=== PATIENT | female | born 1930 | race Caucasian/White ===

== ENCOUNTER 2018-09-21 16:48 | Observation (INO) | payer OTHER, MEDICARE ==
--- OUTSIDE RECORDS SUMMARY | 2018-09-21 16:50 | XMS REPORT ---
:1930 Author Organization eClinicalWorks Care Team Providers Name Role Phone Tu Morrow Provider Role Unavailable Allergies, Adverse Reactions, Alerts Substance Reaction Event Type Tetanus Info Not Available Drug Allergy Problems Problem Type Condition Code Onset Dates Condition Status Assessment Pain in joint of right wrist M25.531 Active Assessment Ganglion cyst of volar aspect of M67.431 Active right wrist Medications Medication Code Code Instructions Start End Status Dosage System Date Date Aleve [facility] 63005955560 220 MG Orally Jun 30, Active 1 tablet every 12 hrs 2018 with food or milk as needed Aspir-81 [facility] [address]-35 81 MG Orally Jun 30, Active 1 tablet Once a day 2017 losartan [facility] 55643042011 20 mg Jun 30, Active one tab 2018 daily Eye Vitamins [facility] 33697164133 - Orally Jun 30, Active as directed 2018 atorvastatin [facility] 38982062004 20mg Jun 30, Active 1 tablet by 2018 mouth at bedtime Results No Known Results Summary Purpose eClinicalWorks Submission
--- NOTE | 2018-09-21 17:32 | ER ---
Nurse's Notes [facility] Name: Beverley Stevens Age: 88 yrs Sex: Female : 1930 Arrival Date: 09/21/2018 Time: 16:51 Bed 7 Private MD: Marlo Odonnell V Diagnosis: Syncope and collapse;Essential (primary) hypertension;Superficial injury of head Presentation: 09/21 16:57 Presenting complaint: Patient states: Fell from a standing position approx 1 hour ago. ss Pt reports she the back of her bead and believes she may also have a UTI. Denies LOC. Transition of care: patient was not received from another setting of care. Onset of symptoms is unknown. Risk Assessment: Do you want to hurt yourself or someone else? Patient reports no desire to harm self or others. Initial Sepsis Screen: Does the patient meet any 2 criteria? No. Patient's initial sepsis screen is negative. Does the patient have a suspected source of infection? Yes: Dysuria/Frequency/Urgency/UTI. Care prior to arrival: None. 16:57 Method Of Arrival: Wheelchair 16:57 Acuity: EDMUND 2 ss Historical: - Allergies: 16:59 No Known Allergies; ss - PMHx: 16:59 Hypertension; High Cholesterol; ss - PSHx: 16:59 Hysterectomy; removal of skin cancer; Appendectomy; Tonsillectomy; stents to left leg; ss Knee surgery; foot surgery; - Immunization history:: Adult Immunizations up to date, Flu vaccine is not up to date. - Social history:: Smoking status: Patient/guardian denies using tobacco. - Ebola Screening: : Patient denies exposure to infectious person Patient denies travel to an Ebola-affected area in the 21 days before illness onset. - Family history:: not pertinent. Screenin:30 Abuse screen: Denies threats or abuse. Nutritional screening: No deficits noted. aa5 Tuberculosis screening: No symptoms or risk factors identified. Fall Risk Fall in past 12 months (25 points). IV access (20 points). Total Jones Fall Scale indicates High Risk Score (45 or more points). Fall prevention measures have been instituted. Side Rails Up X 2 Family Present and informed to notify staff if the need to leave the bedside. Assessment: 17:10 General: Appears comfortable, Behavior is calm, cooperative. Pain: Denies pain. Neuro: aa5 Level of Consciousness is awake, alert, obeys commands, Oriented to person, place, time, situation, Enologist are weak bilaterally Moves all extremities. Speech is normal, Facial symmetry appears normal, Pupils are PERRLA, Reports generalized weakness. Pt states "I feel like my head is not right, like I am drugged or something" . Cardiovascular: Reports Pt states "I think I blacked out and lost consciousness before I fell" Denies chest pain, Heart tones S1 S2 present Edema 1+ pitting edema to sangita lower extremities Rhythm is regular. Respiratory: Airway is patent Respiratory effort is even, unlabored, Respiratory pattern is regular, symmetrical, Breath sounds are clear bilaterally. GI: Abdomen is round non-distended, Bowel sounds present X 4 quads. Abd is soft and non tender X 4 quads. : Reports "I think I have a UTI because every time I go to the doctor I have one" Denies burning with urination. EENT: No signs and/or symptoms were reported regarding the EENT system. Derm: Skin is pink, warm \\T\\ dry. Swollen area noted to left pariental area with abrasion, approximately 2.5in in diameter, no active bleeding noted. Musculoskeletal: Range of motion: intact in all extremities. 17:42 Reassessment: Pt to CT via stretcher . aa5 18:06 Reassessment: Patient is alert, oriented x 3, equal unlabored respirations, skin aa5 warm/dry/pink. Pt back from CT scan . 18:30 Reassessment: Patient and/or family updated on plan of care and expected duration. Pain aa5 level reassessed. Patient is alert, oriented x 3, equal unlabored respirations, skin warm/dry/pink. Patient denies pain at this time. Pt sitting up in bed. Pt's family at bedside. . 19:30 General: Appears in no apparent distress. Behavior is calm, cooperative. Pain: Denies ea pain. Neuro: Level of Consciousness is awake, alert, obeys commands, Oriented to person, place, time, situation. Cardiovascular: Heart tones S1 S2 present Patient's skin is warm and dry. Respiratory: Airway is patent Respiratory effort is even, unlabored, Respiratory pattern is regular, symmetrical. GI: Abdomen is round non-distended, Bowel sounds present X 4 quads. Abd is soft and non tender X 4 quads. Derm: Skin is pink, warm \\T\\ dry. 20:04 Reassessment: Patient is alert, oriented x 3, equal unlabored respirations, skin ea warm/dry/pink. Patient denies pain at this time. Report give to Asha CHANG . Vital Signs: 16:59 BP 217 / 79; Pulse 79; Resp 18; Temp 97.7(TE); Pulse Ox 99% on R/A; Weight 55.34 kg ss (R); Height 5 ft. 0 in. (152.40 cm); Pain 0/10; 16:59 BP 214 / 69; Pulse 80; Resp 17; Pulse Ox 98% on R/A; ss 17:22 BP 243 / 99; Pulse 88; Resp 16 S; Pulse Ox 96% on R/A; aa5 18:06 BP 184 / 107; Pulse 76; Resp 16 S; Pulse Ox 97% on R/A; aa5 18:20 BP 196 / 82; Pulse 74; Resp 16 S; Pulse Ox 96% on R/A; aa5 18:34 BP 180 / 75; Pulse 71; Resp 16 S; Pulse Ox 96% on R/A; aa5 18:50 BP 174 / 76; Pulse 74; Resp 16 S; Pulse Ox 97% on R/A; aa5 19:31 BP 180 / 75; Pulse 78; Resp 17; Pulse Ox 98% on R/A; Pain 0/10; ea 20:06 BP 186 / 76; Pulse 72; Resp 18; Pulse Ox 99% on R/A; ea 16:59 Body Mass Index 23.83 (55.34 kg, 152.40 cm) ss 17:22 Dr. Ricketts notified of increased BP aa5 ED Course: 16:51 Patient arrived in ED. mr 16:51 Marlo Odonnell MD is Private Physician. mr 16:58 Triage completed. ss 17:02 Sonu Ricketts MD is Attending Physician. [facility] 17:05 Sally Waller, BERNARDO is Primary Nurse. aa5 17:10 Patient has correct armband on for positive identification. Placed in gown. Bed in low aa5 position. Call light in reach. Side rails up X2. case monitor on. Pulse ox on. NIBP on. 17:20 Initial lab(s) drawn, by me, sent to lab. Inserted saline lock: 20 gauge in left aa5 forearm, using aseptic technique. Blood collected. 17:31 Marlo Odonnell MD is Hospitalizing Provider. [facility] 17:32 Radiology exam delayed due to IV insertion attempt and/or patient not having vm2 appropriate IV at this time. 17:[address] 2 17:57 EKG done, by remote sensing technician. reviewed by Sonu Ricketts MD. dt2 18:34 No provider procedures requiring assistance completed. aa5 19:05 Report given to BERNARDO Peter and BERNARDO Yusuf. [facility] 19:32 Patient admitted, IV remains in place. ea Administered Medications: 17:40 Drug: cloNIDine 0.1 mg Route: PO; aa5 18:30 Follow up: Response: No adverse reaction aa5 17:40 Drug: Norvasc 10 mg Route: PO; aa5 18:30 Follow up: Response: No adverse reaction aa5 18:10 Drug: NS 0.9% 1000 ml Route: IV; Rate: 75 ml/hr; Site: left forearm; aa5 20:08 Follow up: Response: No adverse reaction; IV Status: Infusion continued upon admission ea 18:10 Drug: Lisinopril 5 mg Route: PO; aa5 18:50 Follow up: Response: No adverse reaction aa5 18:15 Drug: Rocephin - (cefTRIAXone) 1 grams {Note: administered IVP per pharmacy protocol at [facility] this time. .} Route: IVPB; Infused Over: 30 mins; Site: left forearm; 18:20 Follow up: Response: No adverse reaction aa5 19:00 Follow up: Response: No adverse reaction; IV Status: Completed infusion ea Outcome: 17:31 Decision to Hospitalize by Provider. [facility] 19:32 Instructed on the need for admit. ea 20:05 Admitted to Med/surg accompanied by nurse, room 211, Report called to Asha CHANG ea 20:05 Condition: stable 20:36 Patient left the ED. ea Signatures: Sonu Ricketts MD MD cha Rivera, Mary mr Waller, Sally, RN BERNARDO aa5 Ana Hale RN RN Jayleen Cordova 2 Brittani Webster RN RN Shavon Lawson 1 Caro Lazcano dt2 Corrections: (The following items were deleted from the chart) 17:05 16:57 Acuity: EDMUND 3 ss ss 17:32 17:26 Patient moved to [place] [id number] 18:06 17:10 Derm: Skin is pink, warm \\T\\ dry. aa5 aa5
--- NOTE | 2018-09-21 17:32 | EDPHYS ---
Physician Documentation [facility] Name: Beverley Stevens Age: 88 yrs Sex: Female : 1930 Arrival Date: 09/21/2018 Time: 16:51 Bed 7 Private MD: Marlo Odonnell V ED Physician Sonu Ricketts HPI: 09/21 17:22 This 88 yrs old Female presents to ER via Wheelchair with complaints of Fall sagrario Injury. 17:22 Details of fall: The patient fell from an upright position, while walking. Onset: The sagrario symptoms/episode began/occurred just prior to arrival. Historical: - Allergies: 16:59 No Known Allergies; ss - PMHx: 16:59 Hypertension; High Cholesterol; ss - PSHx: 16:59 Hysterectomy; removal of skin cancer; Appendectomy; Tonsillectomy; stents to left leg; ss Knee surgery; foot surgery; - Immunization history:: Adult Immunizations up to date, Flu vaccine is not up to date. - Social history:: Smoking status: Patient/guardian denies using tobacco. - Ebola Screening: : Patient denies exposure to infectious person Patient denies travel to an Ebola-affected area in the 21 days before illness onset. - Family history:: not pertinent. ROS: 17:23 Constitutional: Negative for fever, chills, and weight loss, Eyes: Negative for injury, sagrario pain, redness, and discharge, ENT: Negative for injury, pain, and discharge, Neck: Negative for injury, pain, and swelling, Cardiovascular: Negative for chest pain, palpitations, and edema, Respiratory: Negative for shortness of breath, cough, wheezing, and pleuritic chest pain, Abdomen/GI: Negative for abdominal pain, nausea, vomiting, diarrhea, and constipation, Back: Negative for injury and pain, : Negative for injury, bleeding, discharge, and swelling, MS/Extremity: Negative for injury and deformity, Skin: Negative for injury, rash, and discoloration, Psych: Negative for depression, anxiety, suicide ideation, homicidal ideation, and hallucinations, Allergy/Immunology: Negative for hives, rash, and allergies, Endocrine: Negative for neck swelling, polydipsia, polyuria, polyphagia, and marked weight changes, Hematologic/Lymphatic: Negative for swollen nodes, abnormal bleeding, and unusual bruising. 17:23 Neuro: Positive for syncope. Exam: 17:23 Constitutional: This is a well developed, well nourished patient who is awake, alert, sagrario and in no acute distress. Head/Face: Normocephalic, atraumatic. Eyes: Pupils equal round and reactive to light, extra-ocular motions intact. Lids and lashes normal. Conjunctiva and sclera are non-icteric and not injected. Cornea within normal limits. Periorbital areas with no swelling, redness, or edema. ENT: Nares patent. No nasal discharge, no septal abnormalities noted. Tympanic membranes are normal and external auditory canals are clear. Oropharynx with no redness, swelling, or masses, exudates, or evidence of obstruction, uvula midline. Mucous membranes moist. Neck: Trachea midline, no thyromegaly or masses palpated, and no cervical lymphadenopathy. Supple, full range of motion without nuchal rigidity, or vertebral point tenderness. No Meningismus. Chest/axilla: Normal chest wall appearance and motion. Nontender with no deformity. No lesions are appreciated. Respiratory: Lungs have equal breath sounds bilaterally, clear to auscultation and percussion. No rales, rhonchi or wheezes noted. No increased work of breathing, no retractions or nasal flaring. Abdomen/GI: Soft, non-tender, with normal bowel sounds. No distension or tympany. No guarding or rebound. No evidence of tenderness throughout. Back: No spinal tenderness. No costovertebral tenderness. Full range of motion. Skin: Warm, dry with normal turgor. Normal color with no rashes, no lesions, and no evidence of cellulitis. MS/ Extremity: Pulses equal, no cyanosis. Neurovascular intact. Full, normal range of motion. Neuro: Awake and alert, GCS 15, oriented to person, place, time, and situation. Cranial nerves II-XII grossly intact. Motor strength 5/5 in all extremities. Sensory grossly intact. Cerebellar exam normal. Normal gait. Psych: Awake, alert, with orientation to person, place and time. Behavior, mood, and affect are within normal limits. 17:23 Cardiovascular: Rate: normal, Rhythm: regular, Pulses: Pulses are 4+ in bilateral radial, brachial, femoral, popliteal, posterior tibial and and dorsalis pedis arteries.. Heart sounds: murmur, systolic, grade 2 over 6, heard in the aortic area, rub, not appreciated, gallop, not appreciated, Edema: is not appreciated, JVD: is not appreciated. Vital Signs: 16:59 BP 217 / 79; Pulse 79; Resp 18; Temp 97.7(TE); Pulse Ox 99% on R/A; Weight 55.34 kg ss (R); Height 5 ft. 0 in. (152.40 cm); Pain 0/10; 16:59 BP 214 / 69; Pulse 80; Resp 17; Pulse Ox 98% on R/A; ss 17:22 BP 243 / 99; Pulse 88; Resp 16 S; Pulse Ox 96% on R/A; aa5 18:06 BP 184 / 107; Pulse 76; Resp 16 S; Pulse Ox 97% on R/A; aa5 18:20 BP 196 / 82; Pulse 74; Resp 16 S; Pulse Ox 96% on R/A; aa5 18:34 BP 180 / 75; Pulse 71; Resp 16 S; Pulse Ox 96% on R/A; aa5 18:50 BP 174 / 76; Pulse 74; Resp 16 S; Pulse Ox 97% on R/A; aa5 19:31 BP 180 / 75; Pulse 78; Resp 17; Pulse Ox 98% on R/A; Pain 0/10; ea 20:06 BP 186 / 76; Pulse 72; Resp 18; Pulse Ox 99% on R/A; ea 16:59 Body Mass Index 23.83 (55.34 kg, 152.40 cm) ss 17:22 Dr. Ricketts notified of increased BP aa5 MDM: 17:02 Patient medically screened. [facility] 17:24 Data reviewed: vital signs, nurses notes, lab test result(s), EKG, radiologic studies, [facility] CT scan, plain films. 09/21 17:19 Order name: Basic Metabolic Panel; Complete Time: 18:28 [facility] 09/21 17:19 Order name: CBC with Diff; Complete Time: 18:28 [facility] 09/21 17:19 Order name: LFT's; Complete Time: 18:28 [facility] 09/21 17:19 Order name: Magnesium; Complete Time: 18:28 [facility] 09/21 17:19 Order name: NT PRO-BNP; Complete Time: 18:28 [facility] 09/21 17:19 Order name: PT-INR; Complete Time: 18:28 [facility] 09/21 17:19 Order name: Troponin (emerg Dept Use Only); Complete Time: 18:28 [facility] 09/21 17:19 Order name: Lipase; Complete Time: 18:28 [facility] 09/21 17:19 Order name: Urine Culture [facility] 09/21 17:44 Order name: Basic Metabolic Panel [facility] 09/21 17:44 Order name: Basic Metabolic Panel [facility] 09/21 17:44 Order name: CBC with Automated Diff [facility] 09/21 17:44 Order name: CBC with Automated Diff [facility] 09/21 17:44 Order name: Troponin I [facility] 09/21 17:19 Order name: XRAY Chest (1 view) [facility] 09/21 17:19 Order name: CT Head C Spine [facility] 09/21 17:42 Order name: US Carotid Artery Bilateral [facility] 09/21 17:44 Order name: Echo with Doppler [facility] 09/21 17:44 Order name: Troponin I [facility] 09/21 17:44 Order name: Troponin I [facility] 09/21 17:45 Order name: Chest Single View [facility] 09/21 17:45 Order name: Chest Single View [facility] 09/21 18:07 Order name: Urine Dipstick--Ancillary (enter results) 09/21 18:14 Order name: CT; Complete Time: 18:28 [facility] 09/21 18:32 Order name: RAD [facility] 09/21 19:57 Order name: US [facility] 09/21 17:19 Order name: EKG; Complete Time: 17:33 [facility] 09/21 17:19 Order name: Cardiac monitoring; Complete Time: 17:39 [facility] 09/21 17:19 Order name: EKG - Nurse/Tech; Complete Time: 17:40 [facility] 09/21 17:19 Order name: IV Saline Lock; Complete Time: 17:39 [facility] 09/21 17:19 Order name: Labs collected and sent; Complete Time: 17:40 [facility] 09/21 17:19 Order name: O2 Per Protocol; Complete Time: 17:39 [facility] 09/21 17:19 Order name: O2 Sat Monitoring; Complete Time: 17:39 [facility] 09/21 17:19 Order name: Urine Dipstick-Ancillary (obtain specimen); Complete Time: 17:54 [facility] 09/21 17:44 Order name: CONS Physician Consult [facility] 09/21 17:44 Order name: CONS Physician Consult [facility] 09/21 17:44 Order name: Regular [facility] 09/21 17:44 Order name: EKG Electrocardiogram [facility] 09/21 17:44 Order name: EKG Electrocardiogram [facility] 09/21 17:44 Order name: EKG Electrocardiogram [facility] 09/21 17:44 Order name: EKG Electrocardiogram EDMS Administered Medications: 17:40 Drug: cloNIDine 0.1 mg Route: PO; aa5 18:30 Follow up: Response: No adverse reaction aa5 17:40 Drug: Norvasc 10 mg Route: PO; aa5 18:30 Follow up: Response: No adverse reaction aa5 18:10 Drug: NS 0.9% 1000 ml Route: IV; Rate: 75 ml/hr; Site: left forearm; aa5 20:08 Follow up: Response: No adverse reaction; IV Status: Infusion continued upon admission ea 18:10 Drug: Lisinopril 5 mg Route: PO; aa5 18:50 Follow up: Response: No adverse reaction aa5 18:15 Drug: Rocephin - (cefTRIAXone) 1 grams {Note: administered IVP per pharmacy protocol at aa5 this time. .} Route: IVPB; Infused Over: 30 mins; Site: left forearm; 18:20 Follow up: Response: No adverse reaction aa5 19:00 Follow up: Response: No adverse reaction; IV Status: Completed infusion ea Disposition: 09/21/18 17:31 Hospitalization ordered by Marlo Odonnell for Observation. Preliminary diagnosis are Syncope and collapse, Essential (primary) hypertension, Superficial injury of head. - Bed requested for Telemetry/MedSurg (observation). - Status is Observation. ea - Condition is Stable. - Problem is new. - Symptoms have improved. UTI on Admission? No Signatures: Dispatcher [employer] EDNJ Clarisa Aparicio Corey, MD MD cha Calderon, Audri, RN RN aa5 Ana Hale RN RN ss Antunez, Elena, RN RN ea Corrections: (The following items were deleted from the chart) 18:53 17:31 Hospitalization Ordered by Marlo Odonnell MD for Observation. Preliminary diagnosis bd is Syncope and collapse; Essential (primary) hypertension; Superficial injury of head. Bed requested for Telemetry/MedSurg (observation). Status is Observation. Condition is Stable. Problem is new. Symptoms have improved. UTI on Admission? No. sagrario 20:36 18:53 09/21/2018 17:31 Hospitalization Ordered by Marlo Odonnell MD for Observation. ea Preliminary diagnosis is Syncope and collapse; Essential (primary) hypertension; Superficial injury of head. Bed requested for Telemetry/MedSurg (observation). Status is Observation. Condition is Stable. Problem is new. Symptoms have improved. UTI on Admission? No. bd
[2018-09-21] MEDS ORDERED: ACETAMINOPHEN 500 MG TAB PO PRN (17:38)
[2018-09-21] MEDS ORDERED: ONDANSETRON 4 MG/2 ML VIAL IV PRN (17:38)
[2018-09-21 17:46] LABS: Absolute Lymphocytes (CBC) 2.3 K/uL (0.7-4.9); Absolute Monocytes 0.8 K/uL (0.1-1.3); Basophils % 0.7 % (0-1.3); Eosinophils % 3.6 % (0-4.4); Hematocrit 40.4 % (36.0-45.0); Lymphocytes % 26.9 % (15.3-44.8); MCH 32.6 pg (27.0-35.0); MCV 93.7 fL (80-100); MPV 8.5 fL (7.6-11.3); Monocytes % 9.5 % (3.3-12.3); RBC Red Blood Cell Count 4.31 M/uL (3.86-4.86)
[2018-09-21] MEDS ORDERED: NA CHLORIDE 0.9% 1,000 ML ONE (17:51)
[2018-09-21] MEDS ORDERED: AMLODIPINE 5 MG TAB ONE (17:51)
[2018-09-21] MEDS ORDERED: cloNIDine HCl 0.1 MG TAB ONE (17:51)
[2018-09-21 17:53] LABS: Protime INR 0.91
[2018-09-21 18:08] LABS: ALT/SGPT 23 U/L (12-78); AST/SGOT 18 U/L (15-37); Albumin 3.8 g/dL (3.4-5.0); Alkaline Phosphatase 82 U/L (45-117); BUN Blood Urea Nitrogen 16 mg/dL (7-18); Bicarbonate 26 mmol/L (21-32); Bilirubin Direct 0.1 mg/dL (0-0.2); Bilirubin Total 0.4 mg/dL (0.2-1.0); Glucose Level 88 mg/dL (74-106); Lipase 108 U/L (73-393); Magnesium 2.5 mg/dL (1.8-2.4); NT PRO-BNP 689 pg/mL (<450); Potassium 3.6 mmol/L (3.5-5.1); Sodium Level 142 mmol/L (136-145); Troponin (Emerg Dept Use Only) < 0.02 ng/mL (0.0-0.045)
--- NOTE | 2018-09-21 18:12 | RAD REPORT ---
EXAM DESCRIPTION: CT - [id number] - 09/21/2018 5:59 pm CLINICAL HISTORY: Trauma, head and neck injury. Pain;Swelling COMPARISON: No comparisons TECHNIQUE: Axial 5 mm thick images of the head were obtained. Axial 2 mm thick images of the cervical spine were obtained with sagittal and coronal reconstruction images generated and reviewed. All CT scans are performed using dose optimization technique as appropriate and may include automated exposure control or mA/KV adjustment according to patient size. FINDINGS: CT HEAD WITHOUT CONTRAST: No acute hemorrhage, hydrocephalus or extra-axial collection is identified.Advanced generalized brain atrophy is present with moderate periventricular and deep white matter chronic microvascular ischemi c changes.Calcified lesion along the posterior aspect of the falx measures 15 x 10 mm likely a mening ioma. Mild mucoperiosteal thickening affects the maxillary antra and sphenoid sinus. The paranasal sinuses and mastoids are otherwise clear.The calvarium is intact. Small posterior scalp hematoma. Vertebral a therosclerosis. CT CERVICAL SPINE WITHOUT CONTRAST: No fracture or subluxation.2 mm degenerative retrolisthesis of C3 on 4. 2 mm degenerative anterolisth esis C5 on 6.No prevertebral soft tissues swelling is identified. Heavy aortic atherosclerosis is pre sent, greater on the right. IMPRESSION: No acute intracranial or cervical spine findings.
[2018-09-21] MEDS ORDERED: LISINOPRIL 5 MG TAB ONE (18:21)
[2018-09-21] MEDS ORDERED: CEFTRIAXONE/SWI 1gm 1 GM/10 ML SYR ONE (18:21)
--- NOTE | 2018-09-21 18:29 | RAD REPORT ---
EXAM DESCRIPTION: RAD - Chest Single View - 09/21/2018 6:25 pm CLINICAL HISTORY: COUGH Chest pain. COMPARISON: Chest Pa And Lat (2 Views) dated 07/03/2017; CHEST SINGLE VIEW dated 12/18/2014; CHEST PA A ND LAT 2 VIEW dated 03/25/2008 FINDINGS: Portable technique limits examination quality. The lungs are grossly clear. The heart is normal in size. No displaced fractures.Aortic atheroscleros is. IMPRESSION: No acute intrathoracic process suspected.
--- NOTE | 2018-09-21 19:56 | RAD REPORT ---
EXAM DESCRIPTION: US - CP - 09/21/2018 7:47 pm CLINICAL HISTORY: Dizziness;Syncope TIA/CVA symptomology COMPARISON: Head C Spine Mpr Wo Con dated 09/21/2018 TECHNIQUE: Real-time sonographic evaluation of both carotid systems was performed. Doppler interroga tion was performed with waveform tracing bilaterally. FINDINGS: Normal high resistance waveforms are noted in both external carotid arteries. The common c arotid arteries and internal carotid arteries show normal low resistance waveforms. Moderate hard plaque is seen in both proximal internal carotid artery is well as the right mid common carotid artery. Peak systolic and end diastolic velocity values and the ICA/CCA ratios are in the no n-hemodynamically significant range. Antegrade flow seen in both vertebral arteries. IMPRESSION: Moderate multifocal hard plaquing is seen, greatest in both carotid bulbs. No evidence of a hemodynamically significant stenosis.
[2018-09-21 22:07] LABS: Urine Blood NEGATIVE (NEG); Urine Glucose NEGATIVE (NEG); Urine Protein NEGATIVE (NEG); Urine Specific Gravity 1.015 (1.005-1.030)
[2018-09-22 06:04] LABS: Absolute Lymphocytes (CBC) 1.6 K/uL (0.7-4.9); Absolute Monocytes 0.6 K/uL (0.1-1.3); Basophils % 0.6 % (0-1.3); Eosinophils % 5.1 % (0-4.4); Hematocrit 35.8 % (36.0-45.0); Lymphocytes % 24.5 % (15.3-44.8); MCH 32.9 pg (27.0-35.0); MCV 93.4 fL (80-100); MPV 9.2 fL (7.6-11.3); RBC Red Blood Cell Count 3.83 M/uL (3.86-4.86)
[2018-09-22 06:16] LABS: BUN Blood Urea Nitrogen 13 mg/dL (7-18); Bicarbonate 30 mmol/L (21-32); Glucose Level 90 mg/dL (74-106); Potassium 3.8 mmol/L (3.5-5.1); Sodium Level 145 mmol/L (136-145)
--- NOTE | 2018-09-22 07:06 | EKG ---
Test Date: 2018-09-21 Test Time: 17:49:19 Water Resource Manager: ONEL MEASUREMENT RESULTS: Intervals: Rate: 71 PA: 156 QRSD: 82 QT: 408 QTc: 443 [place]: P: 52 PA: 156 QRS: 11 T: 50 INTERPRETIVE STATEMENTS: Normal sinus rhythm Minimal voltage criteria for LVH, may be normal variant Possible Anterior infarct, age undetermined Abnormal ECG Compared to ECG 11/02/2015 07:43:23 No significant changes Electronically Signed On 09-22-18 07:05:24 [employer] POLICE OFFICER by Booker Foreman
[2018-09-22] MEDS ORDERED: INFLUENZA VACCINE (for 3y+) 0.5 ML DOSE IMVAC ONE (08:00)
[2018-09-22] MEDS ORDERED: ASPIRIN EC 81 MG TAB PO SCH (09:00)
[2018-09-22] MEDS ORDERED: LISINOPRIL 5 MG TAB PO SCH (09:00)
[2018-09-22] MEDS ORDERED: AMLODIPINE 5 MG TAB PO SCH (09:00)
--- NOTE | 2018-09-22 12:24 | ECHO ---
HEIGHT: 5 ft 0 in WEIGHT: 124 lb 11.2 oz DATE OF STUDY: 09/22/[address]: 2-DIMENSIONAL: YES M.MODE: YES DOPPLER: YES COLOR FLOW: YES TDS: NO PORTABLE: NO DEFINITY: NO BUBBLE STUDY: NO DIAGNOSIS: SYNCOPE CARDIAC HISTORY: CATHERIZATION: NO SURGERY: NO PROSTHETIC VALVE: NO PACEMAKER: NO MEASUREMENTS (cm) DIASTOLIC (NORMALS) SYSTOLIC (NORMALS) IVSd 1.3 (0.6-1.2) LA Diam 3.8 (1.9-4.0) LVEF 72% LVIDd 3.9 (3.5-5.7) LVIDs 2.3 (2.0-3.5) %FS 40% LVPWd 1.3 (0.6-1.2) Ao Diam 3.0 (2.0-3.7) 2 DIMENSIONAL ASSESSMENT: RIGHT ATRIUM: NORMAL LEFT ATRIUM: NORMAL RIGHT VENTRICLE: NORMAL LEFT VENTRICLE: LEFT VENTRICULAR HYPERTROPHY TRICUSPID VALVE: NORMAL MITRAL VALVE: MITRAL ANNULAR CALCIFICATION PULMONIC VALVE: NORMAL AORTIC VALVE: SCLEROSIS PERICARDIAL EFFUSION: NONE AORTIC ROOT: NORMAL LEFT VENTRICULAR WALL MOTION: NORMAL DOPPLER/COLOR FLOW: MILD AORTIC REGURGITATION. COMMENTS: MILD AORTIC REGURGITATION. AORTIC SCLEROSIS- NO STENOSIS. LEFT VENTRICULAR HYPERTROPHY. MITRAL ANNULAR CALCIFICATION. NORMAL EJECTION FRACTION. TECHNOLOGIST: TONYA MOORE
--- NOTE | 2018-09-22 14:08 | CON ---
Date of Consultation: 09/22/[address] Odonnell's service on 09/21/2018. Reason For Consultation: Syncope. History Of Present Illness: Ms. Stevens is an 88-year-old white woman who has a history of PAD. She is status post left SFA stent in the past. Has a history of hypertension and dyslipidemia. Came in with a syncopal episode without any symptoms before or after the syncope. She fell down and had a sc alp hematoma. CT of her head showed meningioma. Chest x-ray was negative. Her BNP was 689. EKG wa s unremarkable. She is in sinus rhythm. No nausea, vomiting, diaphoresis reported. No palpitations reported. No fevers or chills. Recently, she was standing up and turned around to go back to her h ouse from outside and then she just passed out. Allergies: SHE IS ALLERGIC TO LATEX AND TETANUS. Review of Systems: Negative. Social History: Negative. Family History: Negative. Medications: The only medications she takes at home are potassium and calcium supplement. At one po int, she took Coreg and Lasix, and we have stopped those because of the syncopal episode long time ag o. She used to take Pravachol also, but she quit that. Physical Examination: General: She is pleasant, alert, oriented x3, very intelligent conversation. Vital Signs: Stable, afebrile. HEENT: Negative. Neck: Supple without any bruit, lymphadenopathy, JVD, or thyromegaly. Chest: Clear to auscultation and percussion. Cardiac exam: Revealed a regular rhythm and rate with a 2/6 systolic ejection murmur at the third ri ght intercostal space that did not radiate. She had no S4 gallops or rubs. Abdomen: Benign. Extremities: Revealed no clubbing, cyanosis, or edema. Diagnostic Data: As stated earlier. Impression And Plan: 1.Syncope, possibly related to a vasovagal reaction or orthostatic hypotension. 2.Cardiac murmur suggestive of aortic stenosis or sclerosis. 3.Hypertension, well controlled. 4.Meningioma. It is remotely possible that this was secondary to some form of seizure disorder as w ell because of the meningioma, although unlikely. I doubt we are dealing with any cardiovascular iss ue. She certainly could have sick sinus syndrome. I agree with her echocardiogram. She may need a carotid Doppler. She definitely will need an event monitor for outpatient after she goes home. FILEMON/LEXUS Voice ID: [id number] Report ID: [id number]
--- NOTE | 2018-09-22 15:31 | RAD REPORT ---
EXAM DESCRIPTION: MRI - Brain W/Wo Cont - 09/22/2018 3:19 pm CLINICAL HISTORY: Syncope COMPARISON: September 21, [address] TECHNIQUE: Axial, sagittal, and coronal magnetic images of the brain were obtained. 20 cc MultiHance administered intravenously FINDINGS: Mild signal within periventricular, deep and subcortical white matter likely represent isc hemic changes secondary to small vessel disease. A 15 millimeter enhancing mass abuts the posterior falx consistent with a hemangioma. No surrounding edema is seen. Diffusion-weighted sequences do not demonstrate evidence of an acute infarction. Ventricles are normal caliber. Cerebral atrophy is noted. An extra-axial fluid collection is not noted. Soft small amount of fluid in mucoperiosteal thickening involves the sphenoid sinus consistent with a cute and chronic sinusitis IMPRESSION: A 15 millimeter parafalcine meningioma No acute intracranial abnormality seen
--- NOTE | 2018-09-22 15:33 | RAD REPORT ---
EXAM DESCRIPTION: MRI - MRA Neck W/Wo Cont - 09/22/2018 3:19 pm CLINICAL HISTORY: Syncope COMPARISON: None. TECHNIQUE: Magnetic resonance angiogram of the neck was performed. 19 cc MultiHance was administered intravenously. 3D MIPS reconstruction performed FINDINGS: Plaque within the carotid bulbs result in approximately 30% narrowing. Mild narrowing of t he proximal left common carotid artery is seen. External carotid arteries appear unremarkable. An aneurysm is not noted. The vertebral arteries are codominant without visualization of an abnormality. IMPRESSION: Mild plaque within the carotid arteries NASCET criteria used. Mild 0-49% stenosis Moderate 50-69% stenosis Severe 70-99% stenosis
--- NOTE | 2018-09-22 17:58 | P.SSS ---
Patient History Date of Service: 09/22/18 Reason for admission: SYNCOPE History of Present Illness: MS. CORTEZ WHILE HANGING CLOTHES PASSED OUT AND WAS FOUND ON THE FLOOR. SHE WOKE UP WITHIN SECONDS. SHE HAD NO CHEST PAIN, NO DYSPNEA, NO PALPITATIONS. SHE IS STABLE, FEELS WELL. DR ALBRIGHT AND I DON'T FIND ANY ACUTE EVENT LIKE SC, CVA ETC. SHE WILL GET HOLTER LATER IN HIS OFFICE. WE SEE NO ACUTE LIFE THREATENING ARRHYTHMIA. SHE IS EAGER TO GO HOME. Allergies Latex, Natural Rubber Allergy (Verified 09/21/18 23:40) Unknown Tetanus Vaccines Allergy (Uncoded 07/08/17 12:20) Unknown Tetanus Vaccines & Toxoid Allergy (Uncoded 01/17/15 13:24) Unknown Home Medications: Calcium Carbonate [Calcium] 1 tab DAILY 09/21/18 Potassium Chloride [Klor-Con 10] 10 meq PO DAILY 09/21/18 - Past Medical/Surgical History Has patient received pneumonia vaccine in the past: Yes Diabetic: No -: hypertension -: high cholesterol -: removal of skin ca -: stents to left leg -: hysterectomy -: tonsillectomy -: knee sx -: foot sx - Social History Smoking Status: Former smoker Alcohol use: No CD- Drugs: No Caffeine use: No Place of Residence: Home Review of Systems 10-point ROS is otherwise unremarkable Physical Examination - Vital Signs Temperature: 98.2 F Blood Pressure: 185/81 Pulse: 77 Respirations: 17 Pulse Ox (%): 95 - Physical Exam General: Alert, In no apparent distress HEENT: Atraumatic, PERRLA, Mucous membr. moist/pink, Other (SMALL SCALP HEMATOMA.), EOMI, Sclerae nonicteric Neck: Supple, 2+ carotid pulse no bruit, No LAD, Without JVD or thyroid abnormality Respiratory: Clear to auscultation bilaterally, Normal air movement Cardiovascular: Regular rate/rhythm, Normal S1 S2 Gastrointestinal: Normal bowel sounds, No tenderness Musculoskeletal: No tenderness Integumentary: No rashes Neurological: Normal gait, Normal speech, Normal strength at 5/5 x4 extr, Normal tone, Normal affect Lymphatics: No axilla or inguinal lymphadenopathy - Diagnosis (Problem(s)) (1) Syncope Onset Date: 09/22/18 Current Visit: Yes Status: Acute Plan: SYNCOPE MAY BE ORTHOSTASIS. SHE WILL GET HOLTER LATER. SHE IS STABLE FOR DC. SHE IS ABLE TO AMBULATE WITHOUT PASSING OUT. - Disposition Disposition: ROUTINE DISCHARGE Condition: FAIR Patient Discharge Instructions: NO CHANGES IN HOME MEDS. Diet: AHA
--- NOTE | 2018-09-22 19:40 | RAD REPORT ---
EXAM DESCRIPTION: MRI - MRA Head Wo Cont - 09/22/2018 7:00 pm CLINICAL HISTORY: Syncope COMPARISON: None. TECHNIQUE: Magnetic resonance angiogram was performed. 3D MIPS reconstruction performed FINDINGS: The anterior cerebral, middle cerebral, posterior cerebral, distal internal carotid and ba silar arteries do not demonstrate a significant stenosis. An aneurysm is not displayed. IMPRESSION: Unremarkable MRA brain.
== END 2018-09-22 19:34 | disposition home or self-care (01) ==
LOC: ER 16:48 → ERHOLD 17:32 → 2ND 20:09
PROVIDERS: ADMIT Internal Medicine; ATTEND Internal Medicine
DX: R55 Syncope and collapse (principal); I10 Essential (primary) hypertension; R01.1 Cardiac murmur, unspecified; D32.9 Benign neoplasm of meninges, unspecified; Z87.891 Personal history of nicotine dependence; Z88.7 Allergy status to serum and vaccine; Z91.040 Latex allergy status; Z23 Encounter for immunization
CPT/HCPCS: 36415; 70450; 70544; 70549; 70553; 71045; 72125; 80048 ×2; 80076; 81003; 83690; 83735; 83880; 84484 ×3; 85025 ×2; 85610; 87086; 87088; 93005; 93306; 93880; 96361; 96365; 99285; A9577; G0008; G0378 ×2; J0696; J7030; Q2035